=== PATIENT | male | born 1945 | race Caucasian/White ===

== ENCOUNTER 2018-10-02 10:24 | Outpatient (CLI) | payer BC ==
--- NOTE | 2018-10-02 13:20 | CT ---
CT ABDOMEN AND PELVIS WITH AND WITHOUT IV CONTRAST WITH MULTIPHASE IMAGING: COMPARISON: 04/17/2017 and 05/21/2015 FINDINGS: The lung bases are clear. The visualized liver, gallbladder, pancreas, spleen, and adrenal glands ar e unremarkable. There are multiple stable bilateral renal cysts, which have a few thin septae and so me minimal calcific foci within them. These are stable. Stable 3 cm in diameter infrarenal abdomina l aortic aneurysm. Stable calcific focus in the left mid kidney, posteriorly, at the calyx/infundibu lar junction, unchanged from prior study. Normal appearing appendix. The urinary bladder appears un remarkable. No abscess, adenopathy, or abnormal fluid collection. IMPRESSION: 1. Stable bilateral renal cysts. 2. Stable small abdominal aortic aneurysm. 3. Stable small left posterior mid renal calcific focus. POS: [facility]
== END 2018-10-02 10:25 | disposition home or self-care (01) ==
LOC: BICCT 10:24
PROVIDERS: ATTEND Urology
DX: I71.4 Abdominal aortic aneurysm, without rupture (principal); N28.1 Cyst of kidney, acquired; N28.89 Other specified disorders of kidney and ureter
CPT/HCPCS: 74178; 82565

== ENCOUNTER 2021-12-15 12:43 | Outpatient (CLI) | payer OTHER ==
[2021-12-15 14:04] LABS: #Eosinphils 0.2 10x3/uL (0.0-0.5); #Monocytes 0.7 10x3/uL (0.0-1.1); #Neutrophils 3.3 10x3/uL (1.5-8.4); %Basophils 0.6 % (0.0-2.0); %Eosinophils 2.7 % (0.0-6.0); %Lymphocytes 31.6 % (18.0-47.0); %Monocytes 11.3 % (0.0-10.0); %Neutrophils 53.5 % (40.0-75.0); Hemoglobin 13.9 g/dL (13.5-17.5); Mean Corpuscular HGB CONC 34.8 g/dL (32.0-36.0); Mean Corpuscular Hemoglobin 32.6 pg (27.0-33.0); Mean Corpuscular Volume 93.7 fl (81.2-95.1); Mean Platelet Volume 9.5 fl (7.4-10.4); Platelet Count 181 10x3/uL (150-450); RBC Distribution Width 12.2 % (11.5-14.5); Red Blood Cell (RBC) Count 4.26 10x6/uL (4.32-5.72); White Blood Cell (WBC) Count 6.2 10x3/uL (3.5-10.5)
[2021-12-15 14:15] LABS: Prothrombin Time 10.7 sec (9.5-12.1)
[2021-12-15 14:22] LABS: Anion Gap 15 mmol/L (10-20); BUN (Urea Nitrogen) 16 mg/dL (8.4-25.7); Calc. Creatinine Clearance 0 mL/min (70-130); Calcium 9.4 mg/dL (7.8-10.44); Carbon Dioxide 23 mmol/L (23-31); Chloride 106 mmol/L (98-107); Glucose 89 mg/dL (83-110); Potassium 4.4 mmol/L (3.5-5.1); Sodium 140 mmol/L (136-145)
[2021-12-15 22:06] LABS: SARS-CoV-2 PCR by NAA Not Detected (NotDetected)
== END 2021-12-15 12:44 | disposition home or self-care (01) ==
LOC: LABBT 12:43
PROVIDERS: ATTEND Orthopaedic Surgery
DX: Z01.812 Encounter for preprocedural laboratory examination (principal); M17.12 Unilateral primary osteoarthritis, left knee; Z20.822 Contact with and (suspected) exposure to COVID-19
CPT/HCPCS: 80048; 85025; 85610; 87081; U0003; U0005

== ENCOUNTER 2022-02-14 14:23 | Outpatient (CLI) | payer OTHER | END 2022-02-14 14:24 | disposition home or self-care (01) | LOC: TBSIIMAG 14:23 | PROVIDERS: ATTEND Neurological Surgery | DX: M47.26 Other spondylosis with radiculopathy, lumbar region (principal) | CPT/HCPCS: 72110 ==

== ENCOUNTER 2022-02-25 11:44 | Outpatient (CLI) | payer OTHER | END 2022-02-25 11:45 | disposition home or self-care (01) | LOC: TBSIIMAG 11:44 | PROVIDERS: ATTEND Nurse Practitioner Family | DX: M47.26 Other spondylosis with radiculopathy, lumbar region (principal); M47.817 Spondylosis without myelopathy or radiculopathy, lumbosacral region; I71.4 Abdominal aortic aneurysm, without rupture | CPT/HCPCS: 72148 ==

== ENCOUNTER 2022-11-17 10:46 | Outpatient (CLI) | payer OTHER ==
[2022-11-17 11:53] LABS: Hemoglobin 14.1 g/dL (13.5-17.5); Mean Corpuscular HGB CONC 35.1 g/dL (32.0-36.0); Mean Corpuscular Hemoglobin 33.3 pg (27.0-33.0); Mean Platelet Volume 9.6 fl (7.4-10.4); Platelet Count 173 10x3/uL (150-450); RBC Distribution Width 12.4 % (11.5-14.5); Red Blood Cell (RBC) Count 4.23 10x6/uL (4.32-5.72); White Blood Cell (WBC) Count 4.7 10x3/uL (3.5-10.5)
[2022-11-17 12:09] LABS: PTT 24.7 sec (22.0-33.0); Prothrombin Time 10.6 sec (9.5-12.1)
== END 2022-11-17 10:47 | disposition home or self-care (01) ==
LOC: LABBT 10:46
PROVIDERS: ATTEND Neurological Surgery
DX: Z01.818 Encounter for other preprocedural examination (principal); M43.16 Spondylolisthesis, lumbar region; M48.061 Spinal stenosis, lumbar region without neurogenic claudication
CPT/HCPCS: 85027; 85610; 85730; 93005; 93010

== ENCOUNTER 2022-12-14 15:43 | Outpatient (CLI) | payer OTHER | END 2022-12-14 15:44 | disposition home or self-care (01) | LOC: TBSIIMAG 15:43 | PROVIDERS: ATTEND Neurological Surgery | DX: M48.062 Spinal stenosis, lumbar region with neurogenic claudication (principal); M47.816 Spondylosis without myelopathy or radiculopathy, lumbar region; Z98.890 Other specified postprocedural states | CPT/HCPCS: 72100 ==

== ENCOUNTER 2024-07-02 11:47 | Day surgery (SDC) | payer MEDICARE, OTHER ==
[2024-06-27 11:15] VITALS: BMI 29.2
[2024-07-02] MEDS ORDERED: Iopamidol 15 ML ONE (13:38)
[2024-07-02] MEDS ORDERED: fentaNYL 50 mcg/mL 1 mL Vial ONE (13:44)
[2024-07-02] MEDS ORDERED: PROPOFOL 20 ML ONE ×2 (13:44→14:48)
[2024-07-02] MEDS ORDERED: CEFAZOLIN 2 GM VIAL ONE (13:52)
[2024-07-02] MEDS ORDERED: Sodium Chloride 0.9% 100 ML ONE (13:53)
[2024-07-02] MEDS ORDERED: PHENYLEPHRINE-NS 100 MCG/ML 10 ML SYRINGE ONE (14:10)
[2024-07-02] MEDS ORDERED: Dexamethasone 20 MG/5 ML VIAL ONE (14:15)
[2024-07-02] MEDS ORDERED: Lidocaine 1% PF 5 ML VIAL ONE (14:15)
[2024-07-02] MEDS ORDERED: Ondansetron PF 4 MG/2 ML Vial ONE (14:15)
[2024-07-02] MEDS ORDERED: ePHEDrine Sulfate 50 MG/10 ML VIAL ONE (14:16)
[2024-07-02] MEDS ORDERED: Furosemide 20 MG (2 mL) VIAL ONE (14:29)
== END 2024-07-02 16:43 | disposition home or self-care (01) ==
LOC: SDC 11:47
PROVIDERS: ATTEND Urology
PROC: 0TP98DZ Removal of Intraluminal Device from Ureter, Via Natural or Artificial Opening Endoscopic (ICD-10-PCS; principal; 2024-07-02)
DX: C67.0 Malignant neoplasm of trigone of bladder (principal); N13.30 Unspecified hydronephrosis; N13.9 Obstructive and reflux uropathy, unspecified; I10 Essential (primary) hypertension; E03.9 Hypothyroidism, unspecified; Z79.899 Other long term (current) drug therapy; Z98.890 Other specified postprocedural states; Z79.890 Hormone replacement therapy
CPT/HCPCS: 52310; 74420; J1100; J1940; J2405; J2704; J3010; Q9967